=== PATIENT | female | born 1930 ===

== ENCOUNTER 2018-10-15 08:57 | Emergency (ER) | payer MEDICARE ==
[2018-10-15 09:19] VITALS: BMI 24.4
[2018-10-15] MEDS ORDERED: Sodium Chloride 0.9% 1,000 ML IV STA (09:38)
--- NOTE | 2018-10-15 09:43 | ED PDOC ---
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 Patient states a knot like feeling in her epigastric region, the pain radiates to the chest and to her sides. Her pain has progressively worsened today prompting her visit to the emergency department. She notes associated dizziness, lightheadedness, and nausea that began earlier today. Patient reports shes been constipated the past few days, but has had normal bowel movement today. She denies fevers, chills, headache, shortness of breath, dyspnea on exertion, cough, vomiting, diarrhea, back pain, neck pain, or any other complaint. PMD: Dr. Velasquez Time/Duration: > month (past 2 months) Symptom Onset: Gradual Symptom Course: Worsening Activities at Onset: Light Context: Home Past Medical History - Provider Review Nursing Documentation Reviewed: Yes - Cardiac Hx Cardiac Disorders: Yes Hx Hypertension: Yes - Pulmonary Hx Respiratory Disorders: No - Neurological Hx Neurological Disorder: No - HEENT Hx HEENT Disorder: No - Renal Hx Renal Disorder: No - Endocrine/Metabolic Hx Endocrine Disorders: No - Hematological/Oncological Hx Blood Disorders: No - Integumentary Hx Dermatological Disorder: No - Musculoskeletal/Rheumatological Hx Musculoskeletal Disorders: No - Gastrointestinal Hx Gastrointestinal Disorders: Yes Hx Gastritis: Yes - Genitourinary/Gynecological Hx Genitourinary Disorders: No - Psychiatric Hx Psychophysiologic Disorder: No Hx Substance Use: No - Surgical History Hx Breast Biopsy: Yes Family/Social History - Physician Review Nursing Documentation Reviewed: Yes Family/Social History: No Known Family HX Smoking Status: Never Smoked Hx Alcohol Use: No Hx Substance Use: No Allergies/Home Meds Allergies/Adverse Reactions: Allergies No Known Allergies Allergy (Verified 10/15/18 09:18) Home Medications: Home Meds Medication Instructions Recorded Confirmed Hydrochlorothiazide/Losartan 1 tab PO DAILY 02/09/13 10/15/18 [Losartan Potassium-Hydrochlorothiazide 12.5 M] RX: Metoprolol Succinate 25 mg PO DAILY 02/09/13 10/15/18 Warfarin Sodium [Warfarin] 4 mg PO DAILY 02/09/13 10/15/18 amLODIPine [Norvasc] 5 mg PO DAILY 10/15/18 10/15/18 Review of Systems - Physician Review All systems were reviewed & negative as marked: Yes - Review of Systems Constitutional: absent: Fevers Eyes: absent: Vision Changes Respiratory: absent: SOB, Cough Cardiovascular: Chest Pain (abdominal pain radiates to chest) Gastrointestinal: Abdominal Pain (epigastric pain that radiates to the side), Constipation, Nausea. absent: Vomiting Musculoskeletal: absent: Back Pain, Neck Pain Skin: absent: Rash Neurological: Dizziness. absent: Headache Physical Exam Vital Signs Reviewed: Yes Vital Signs Temp Pulse Resp BP Pulse Ox 10/15/18 09:18 97.8 F 99 H 19 147/70 94 L Temperature: Afebrile Blood Pressure: Normal Pulse: Tachycardic Respiratory Rate: Normal Appearance: Positive for: Well-Appearing, Non-Toxic, Comfortable Pain Distress: None Mental Status: Positive for: Alert and Oriented X 3 - Systems Exam Head: Present: Atraumatic, Normocephalic Pupils: Present: PERRL Extroacular Muscles: Present: EOMI Conjunctiva: Present: Normal Mouth: Present: Moist Mucous Membranes Neck: Present: Normal Range of Motion Respiratory/Chest: Present: Clear to Auscultation, Good Air Exchange. No: Respiratory Distress, Accessory Muscle Use Cardiovascular: Present: Regular Rate and Rhythm, Normal S1, S2. No: Murmurs Abdomen: Present: Tenderness (tender to upper abdomen and right lower quadrant ), Guarding. No: Distention, Peritoneal Signs, Rebound Back: Present: Normal Inspection Upper Extremity: Present: Normal Inspection. No: Cyanosis, Edema Lower Extremity: Present: Normal Inspection. No: Edema Neurological: Present: GCS=15, CN II-XII Intact, Speech Normal Skin: Present: Warm, Dry, Normal Color. No: Rashes Psychiatric: Present: Alert, Oriented x 3, Normal Insight, Normal Concentration Medical Decision Making ED Course and Treatment: 10/15/18 09:40 Impression: 88 year old female who presents to the emergency department complaining of epigastric pain, dizziness, and nausea. Differential Diagnosis included but are not limited to: Gastric Ulcer Appendicitis Cholecystitis Plan: -- CT of abdomen and Pelvis -- EKG -- Labs -- Chest X-ray -- Pepcid -- IV fluids -- Zofran Inj -- Urinalysis -- Reassess and disposition Progress Notes: 10/15/18 9:24 EKG reviewed, shows: Afib at 97 bpm with normal intervals and no ST elevations. 10/15/18 11:11 CT Abdomen and Pelvis with contrast reviewed, shows: Dictator: Zackery Reyna MD IMPRESSION: No acute intra-abdominal findings Chest X-ray reviewed, shows: Dictator: Zackery Reyna MD IMPRESSION: No active disease. 10/15/18 12:46 On revaluation patient no longer has pain, abdomen soft, non tender. IVF given. She is tolerating fluids and is no longer lightheaded. Patient will follow up with her PMD and was referred to GI for follow up. - Lab Interpretations I have reviewed the lab results: Yes - EKG Interpretation Interpreted by ED Physician: Yes Type: 12 lead EKG - Scribe Statement The provider has reviewed the documentation as recorded by the Benito Pal Provider Scribe Attestation: All medical record entries made by the Benito were at my direction and personally dictated by me. I have reviewed the chart and agree that the record accurately reflects my personal performance of the history, physical exam, medical decision making, and the department course for this patient. I have also personally directed, reviewed, and agree with the discharge instructions and disposition. Disposition/Present on Arrival - Present on Arrival Any Indicators Present on Arrival: No History of DVT/PE: No History of Uncontrolled Diabetes: No Urinary Catheter: No History of Decub. Ulcer: No History Surgical Site Infection Following: None - Disposition Have Diagnosis and Disposition been Completed?: Yes Diagnosis: Abdominal pain Disposition: HOME/ ROUTINE Disposition Time: 12:46 Patient Plan: Discharge Condition: IMPROVED Discharge Instructions (ExitCare): Acute Abdomen (Belly Pain) Additional Instructions: MALCOLM KRUGER, thank you for letting us take care of you today. Your provider was Sherman Mckee DO and you were treated for Abdominal Pain. The emergency medical care you received today was directed at your acute symptoms. If you were prescribed any medication, please fill it and take as directed. It may take several days for your symptoms to resolve. Return to the Emergency Department if your symptoms worsen, do not improve, or if you have any other problems. Please contact your doctor or call one of the physicians/clinics you have been referred to that are listed on the Patient Visit Information form that is included in your discharge packet. Bring any paperwork you were given at discharge with you along with any medications you are taking to your follow up visit. Our treatment cannot replace ongoing medical care by a primary care provider outside of the emergency department. Thank you for allowing the [facility] team to be part of your care today. If you had an X-Ray or CT scan: A Radiologist will review the ED reading if any change in treatment is needed we will contact you. If you had a blood, urine, or wound culture: It will take several days for the results, if any change in treatment is needed we will contact you. If you had an STI test: It will take 48 hours for the results. Please call after 1 week if you have not heard back. Prescriptions: Ondansetron ODT [Zofran ODT] 4 mg PO Q6 #14 odt Pantoprazole Sodium [Protonix] 40 mg PO DAILY #30 ect Referrals: Debbie Plascencia MD [Medical Doctor] - Follow up with primary Zackery Velasquez MD [Staff Provider] - Follow up with primary Forms: [facility] (Portuguese), WORK NOTE
[2018-10-15 10:17] LABS: ALB/GLOB RATIO 1.3 (1.1-1.8); ALBUMIN 4.2 g/dL (3.0-4.8); ALT/SGPT 31 U/L (7-56); AMYLASE 118 U/L (35-125); AST/SGOT 24 U/L (14-36); BLOOD UREA NITROGEN 33 mg/dL (7-21); CALCIUM 9.9 mg/dL (8.4-10.5); GFR NON-AFRICAN AMERICAN 47; LIPASE 119 U/L (23-300)
[2018-10-15 10:22] LABS: BASO # 0.03 K/mm3 (0.0-2.0); BASO % 0.4 % (0.0-3.0); EOS # 0.2 (0.0-0.7); EOS % 2.2 % (1.5-5.0); GRAN # 5.59 (1.4-6.5); GRAN % 73.6 % (50.0-68.0); HEMOGLOBIN 13.4 g/dL (12.0-16.0); LYMPH # 1.1 (1.2-3.4); LYMPH % 14.6 % (22.0-35.0); MEAN CELL VOLUME 87.5 fl (80.0-105.0); MEAN CORPUSCULAR HEMOGLOBIN 28.9 pg (25.0-35.0); MEAN CORPUSCULAR HGB CONC 33.1 g/dl (31.0-37.0); MEAN PLATELET VOLUME 9.9 fl (7.0-11.0); MONO # 0.7 (0.1-0.6); MONO % 9.2 % (1.0-6.0); RBC 4.63 10^6/uL (3.5-6.1); RED CELL DISTRIBUTION WIDTH 13.7 % (11.5-14.5); WHITE BLOOD COUNT 7.6 10^3/uL (4.5-11.0)
[2018-10-15] MEDS ORDERED: Iohexol 300 100 ML IJ ONE (10:23)
[2018-10-15 10:25] LABS: INR 2.32; PARTIAL THROMBOPLASTIN TIME 46.3 Seconds (25.1-36.5); PROTHROMBIN TIME 27.1 SECONDS (9.4-12.5)
[2018-10-15 10:28] LABS: TROPONIN I < 0.01 ng/mL
--- NOTE | 2018-10-15 11:07 | CT ---
Date of service: 10/15/2018 PROCEDURE: CT Abdomen and Pelvis with contrast HISTORY: mostly upper abd pain RLQ COMPARISON: None. TECHNIQUE: Contrast dose: 100 cc of Omni 300 Radiation dose: Total exam DLP = 289.11 mGy-cm. This CT exam was performed using one or more of the following dose reduction techniques: Automated exposure control, adjustment of the mA and/or kV according to patient size, and/or use of iterative reconstruction technique. FINDINGS: LOWER THORAX: Unremarkable. LIVER: Unremarkable. No gross lesion or ductal dilatation. GALLBLADDER AND BILE DUCTS: Unremarkable. PANCREAS: Unremarkable. No gross lesion or ductal dilatation. SPLEEN: Unremarkable. ADRENALS: Unremarkable. No mass. KIDNEYS AND URETERS: Unremarkable. No hydronephrosis. No solid mass. VASCULATURE: Unremarkable. No aortic aneurysm. Aortic calcifications are seen BOWEL: Unremarkable. No obstruction. No gross mural thickening. APPENDIX: Normal appendix. PERITONEUM: Unremarkable. No free fluid. No free air. LYMPH NODES: Unremarkable. No enlarged lymph nodes. BLADDER: Unremarkable. REPRODUCTIVE: Unremarkable. BONES: Disc bulge at L4-5 OTHER FINDINGS: None. IMPRESSION: No acute intra-abdominal findings
[2018-10-15 12:12] LABS: URINE APPEARANCE CLEAR (CLEAR); URINE BILIRUBIN NEGATIVE (NEGATIVE); URINE BLOOD MODERATE (NEGATIVE); URINE COLOR YELLOW (YELLOW); URINE GLUCOSE (UA) NEGATIVE (NEGATIVE); URINE LEUKOCYTE ESTERASE NEGATIVE Leu/uL (NEGATIVE); URINE PROTEIN NEGATIVE mg/dL (<30 mg/dL); URINE UROBILINOGEN 0.2 E.U./dL (<1 E.U./dL)
[2018-10-15 12:14] LABS: URINE BACTERIA MOD (NEG); URINE RBC 15 - 20 /hpf (0-2); URINE WBC 0 - 2 /hpf (0-6)
[2018-10-15 12:59] VITALS: BP 127/76; PULSE 91; RESP 17; TEMP 98; O2SAT 99
--- NOTE | 2018-10-15 13:00 | CARD ---
APPROVED REPORT Date of service: 10/15/2018 EKG Measurement Heart [id number] <Conclusion> Atrial fibrillation Abnormal ECG
--- NOTE | 2018-10-15 13:05 | RAD ---
Date of service: 10/15/2018 HISTORY: abd pain COMPARISON: 10/18/2017 FINDINGS: LUNGS: No active pulmonary disease. PLEURA: No significant pleural effusion identified, no pneumothorax apparent. CARDIOVASCULAR: Aortic calcification Mild cardiomegaly no pulmonary vascular congestion. OSSEOUS STRUCTURES: No significant abnormalities. VISUALIZED UPPER ABDOMEN: Normal. OTHER FINDINGS: None. IMPRESSION: No active disease.
== END 2018-10-15 13:11 | disposition home or self-care (01) ==
LOC: ED 08:57
DX: R10.9 Unspecified abdominal pain (principal); I10 Essential (primary) hypertension
CPT/HCPCS: 71045; 74177; 80053; 81001; 82150; 82550; 83615; 83690; 84484; 85025; 85610; 85730; 93005; 96361; 96374; 96375; 99285; J2405; J7030; Q9967